=== PATIENT | female | born 1935 | race Caucasian/White ===

== ENCOUNTER 2017-03-10 19:20 | Emergency (ER) | payer OTHER, MEDICARE ==
[~2017-03-10] VITALS: Ht 165.1 cm; Wt 62.6 kg
--- NOTE | 2017-03-10 19:49 | ED MVC/FALL/TRAUMA COMPLAINT ---
History of Present Illness General Chief Complaint: Fall Stated Complaint: BIBA, +HEADSTRIKE, +THINNERS Source: patient, family, old records, EMS Exam Limitations: no limitations Vital Signs & Intake/Output Vital Signs & Intake/Output Vital Signs Date Time Temp Pulse Resp B/P B/P Pulse O2 O2 Flow FiO2 Mean Ox Delivery Rate 03/10 2118 97.6 64 16 132/72 95 Room Air 03/10 1935 97.1 68 18 147/76 96 Room Air Allergies Coded Allergies: ciprofloxacin (From CIPRO) (Severe, TONGUE AWELLS 03/10/17) tetracycline (Severe, TONGUE SWELLING 03/10/17) Penicillins (TONGUE SWELLS 03/10/17) losartan (HYPERKALEMIA 03/10/17) metformin (ELEVATED CREATININE 03/10/17) valsartan (From DIOVAN) (UNSURE 03/10/17) Reconcile Medications Amlodipine Besylate 5 MG TABLET 1 TAB PO DAILY BP (Reported) Aspirin (Ecotrin*) 81 MG TABLET.DR 1 TAB PO DAILY HEART/BLOOD (Reported) Atorvastatin Calcium (Lipitor) 40 MG TABLET 1 TAB PO DAILY CHOLESTEROL ( Reported) Biotin (Unknown Strength) TABLET (Unknown Dose) PO DAILY SUPPLEMENT (Reported ) Clopidogrel Bisulfate (Plavix) 75 MG TABLET 1 TAB PO DAILY BLOOD THINNER ( Reported) Docusate Sodium (Colace) 100 MG CAPSULE 1 CAP PO DAILY STOOL SOFTENER ( Reported) Estrogens, Conjugated (Premarin) (Unknown Strength) CREAM.APPL (Unknown Dose) VAG AD PRN HRT (Reported) Furosemide (Lasix) 20 MG TABLET 1 TAB PO DAILY DIURETIC/BP (Reported) Hydrocodone/Acetaminophen (Hydrocodon-Acetaminoph 7.5-325) 7.5 MG-325 MG TABLET 1-2 TAB PO Q6-8H PRN PAIN (Reported) Losartan Potassium (Cozaar) 25 MG TABLET 1 TAB PO BID HEART/BP (Reported) Magnesium Oxide (Magnesium) 250 MG TABLET 1 TAB PO DAILY SUPPLEMENT (Reported ) Meclizine HCl 25 MG TABLET 1 TAB PO PRN UNKNOWN (Reported) Metformin HCl (Glucophage XR) 500 MG TAB.ER.24H 1 TAB PO QPM DM (Reported) with food Metoprolol Tartrate 25 MG TABLET 1 TAB PO BID HEART/BP (Reported) Multivitamin (Multi-Day Vitamins) 1 EACH TABLET 1 TAB PO DAILY SUPPLEMENT ( Reported) Nitrofurantoin Macrocrystal (Macrodantin) 100 MG CAPSULE 1 CAP PO QHS ANTIBIOTIC (Reported) Oxycodone HCl/Acetaminophen (Percocet 5-325 MG Tablet) 5 MG-325 MG TABLET 1-2 TAB PO 4 TIMES/DAY PRN severe pain Triage Note: 82 YEAR OLD FEMALE TO ER VIA AMBULANCE FROM HER SONS HOME AFTER SHE TRIPPED AND FELL OVER HER SONS DOG AND LANDED ON HER L SIDE.ALERT/ORIENTED PT TAKES PLAVIX DAILY DUE TO HISTORY OF CARDIAC STENTS X2. NO BLEEDING NOTED AT THIS TIME AND PT COMPLAINS OF L SIDE HEAD BEING SORE, DENIES LOC . PT ARRIVED WITH C-COLLAR IN PLACE BUT DENIES NECK PAIN. PT NOTED TO BE ANXIOUS AT THIS TIME. PT ALSO COMPLAINS OF L RIB PAIN , AND L SHOULDER PAIN. PT ABLE TO LIFT ARM , BUT WITH COMPLAINTS OF A LOT OF PAIN. DR WHITE AT BEDSIDE. C-COLLAR REMOVED BY . Triage Nurses Notes Reviewed? yes Onset: Just prior to arrival Duration: minute(s):, constant, continues in ED Timing: recent history Severity: moderate Injuries/Fall Location: head, upper extremity, chest Method of Injury: direct blow, fall Loss of Consciousness: no loss of consciousness No Modifying Factors: none Associated Symptoms: headache LMP (ages 10-50): post menopausal : No Patient currently breastfeeds: No HPI: Prior to admission patient tripped over her daughter's dog falling onto her left side striking her head complaining of left shoulder and chest wall pain sharp worse with movement and turning bending constant nonradiating. she denies fever chills nausea vomiting diarrhea abdominal pain shortness of breath dysuria rash bleeding loss of consciousness.. Past History Travel History Traveled to [place] past 21 day No Medical History Any Pertinent Medical History? see below for history Neurological: vertigo EENT: allergies Cardiovascular: hypertension Respiratory: NONE Gastrointestinal: NONE Hepatic: NONE Renal: NONE Musculoskeletal: chronic back pain Psychiatric: NONE Endocrine: diabetes Blood Disorders: DVT Cancer(s): NONE PRIVACY OFFICER/Reproductive: NONE Surgical History Surgical History: non-contributory Psychosocial History What is your primary language Vietnamese Tobacco Use: Never used ETOH Use: denies use Illicit Drug Use: denies illicit drug use Family History Hx Contributory? No Review of Systems Review of Systems Constitutional: Reports: no symptoms. Eyes: Reports: no symptoms. Ears, Nose, Throat, Mouth: Reports: no symptoms. Respiratory: Reports: no symptoms. Cardiovascular: Reports: see HPI, chest pain. Gastrointestinal/Abdominal: Reports: no symptoms. Genitourinary: Reports: no symptoms. Musculoskeletal: Reports: see HPI, joint pain. Skin: Reports: no symptoms. Neurological/Psychological: Reports: no symptoms. All Other Systems: Reviewed and Negative Physical Exam Physical Exam General Appearance: well developed/nourished, alert, awake, anxious, mild distress Head: atraumatic, normal appearance Eyes: Bilateral: normal appearance, PERRL, EOMI, normal inspection. Ears, Nose, Throat, Mouth: hearing grossly normal, moist mucous membrane Neck: normal inspection, supple, full range of motion, normal alignment, no midline tenderness Respiratory: normal breath sounds, no respiratory distress, quiet respiration, lungs clear, left anterior chest wall tenderness without crepitus step off Cardiovascular: regular rate/rhythm, normal peripheral pulses, norml femoral pulses equa Peripheral Pulses: 4+ carotid (R), 4+ carotid (L) Gastrointestinal: normal bowel sounds, soft, non-tender, no organomegaly Back: normal inspection, normal range of motion Extremities: pelvis stable, bony-point tenderness, injury present, limited range of motion, straight leg raised, tenderness Neurologic/Psych: no motor/sensory deficits, awake, alert, oriented x 3, normal mood/affect, tools administrator II-XII nml as tested Skin: intact, normal color, warm/dry Core Measures ACS in differential dx? No Severe Sepsis Present: No Septic Shock Present: No Progress Differential Diagnosis: ext injury, ICH, pnemothorax Plan of Care: Orders Procedure Date/time Status Durable Medical Equipment 03/10 2106 Active PROTHROMBIN TIME 03/10 1946 Complete COMPREHENSIVE METABOLIC PANEL 03/10 1946 Complete CBC WITHOUT DIFFERENTIAL 03/10 1946 Complete Laboratory Tests 03/10/171948: Anion Gap 12, Estimated GFR > 60, BUN/Creatinine Ratio 14.4, Glucose 107 H, Calcium 9.3, Total Bilirubin 0.6, AST 33, ALT 28, Alkaline Phosphatase 108, Total Protein 7.8, Albumin 4.3, Globulin 3.5, Albumin/Globulin Ratio 1.2, PT 11.8, INR 1.13, CBC w Diff NO MAN DIFF REQ, RBC 4.05 L, MCV 94.5, MCH 31.2 H, RDW 14.4, MPV 7.3 L, Gran % 42.6, Lymphocytes % 30.5, Monocytes % 10.5 H, Eosinophils % 15.8 H, Basophils % 0.6, Absolute Granulocytes 2.9, Absolute Lymphocytes 2.1, Absolute Monocytes 0.7 H, Absolute Eosinophils 1.1, Absolute Basophils 0, PUBS MCHC 33.0 Diagnostic Imaging: Viewed by Me: Radiology Read, CT Scan. Discussed w/RAD: Radiology Read, CT Scan. Radiology Impression: 1. No finding to correlate with left anterior chest pain. 2. Extensive emphysematous changes within the lungs. Superimposed peripheral fibrotic changes most notable in the bases. 3 mm pulmonary nodules in the upper lobes. Per Fleischner 2017 guidelines, for pulmonary nodules of this size, CT follow-up in 12 months is suggested. 3. Mediastinal and hilar adenopathy measuring up to 1.5 cm in short axis, nonspecific., Nondisplaced fracture through the greater tuberosity of the humeral head. Surrounding soft tissue inflammatory changes. No dislocation., No acute intracranial pathology. Mild chronic white matter microangiopathy. Departure Departure Time of Disposition: 2122 Disposition: HOME OR SELF CARE Condition: Stable Clinical Impression Primary Impression: Minor head injury without loss of consciousness Qualifiers: Encounter type: initial encounter Qualified Code: S09.90XA - Unspecified injury of head, initial encounter Secondary Impressions: Contusion of left chest wall Qualifiers: Encounter type: initial encounter Qualified Code: S20.212A - Contusion of left front wall of thorax, initial encounter Fracture, humerus closed Qualifiers: Encounter type: initial encounter Humerus Location: proximal Fracture morphology: unspecified fracture morphology Laterality: left Qualified Code: S42.202A - Unspecified fracture of upper end of left humerus, initial encounter for closed fracture Referrals: RUFINO BONDS,SHEILA Jeffers Call for orthopedic follow up MASOOD ARGUELLES MD Call for orthopedic follow up Departure Forms: Customer Survey General Discharge Information Prescriptions: Current Visit Scripts Oxycodone HCl/Acetaminophen (Percocet 5-325 MG Tablet) 1-2 TAB PO 4 TIMES/DAY PRN severe pain #20 TAB
[2017-03-10] MEDS ORDERED: LASIX20 M1 PO (19:57)
[2017-03-10] MEDS ORDERED: AMLODIPINE BESYL5 M1 PO (19:58)
[2017-03-10] MEDS ORDERED: COZAAR25 M1 PO (19:58)
[2017-03-10] MEDS ORDERED: LIPITOR40 M1 PO (19:59)
[2017-03-10] MEDS ORDERED: PLAVIX75 M1 PO (19:59)
[2017-03-10] MEDS ORDERED: ASPIRIN EC81 M1 PO (19:59)
[2017-03-10] MEDS ORDERED: HYDROCODON-ACE1 EAC3 PO (20:04)
[2017-03-10 20:05] LABS: ABSOLUTE BASOPHIL COUNT 0 /CUMM (0.0-0.2); ABSOLUTE EOSINOPHIL COUNT 1.1 /CUMM (0.0-0.7); ABSOLUTE GRANULOCYTE CT 2.9 /CUMM (1.4-6.5); ABSOLUTE LYMPH COUNT 2.1 /CUMM (1.2-3.4); ABSOLUTE MONOCYTE COUNT 0.7 /CUMM (0.10-0.60); BASOPHIL % 0.6 % (0.0-2.0); EOSINOPHIL % 15.8 % (0-5); GRANULOCYTE % 42.6 % (42.2-75.2); HEMATOCRIT 38.3 % (37-47); MEAN CORPUSCULAR HGB 31.2 PG (27.0-31.0); MEAN CORPUSCULAR VOLUME 94.5 FL (81.0-99.0); MEAN PLATELET VOLUME 7.3 FL (7.4-10.4); PLATELET COUNT 244 /CUMM (130-400); RBC DISTRIBUTION WIDTH 14.4 % (11.5-14.5); RED BLOOD CELL CT 4.05 /CUMM (4.20-5.40); WHITE BLOOD CELL COUNT 6.9 /CUMM (4.8-10.8)
[2017-03-10] MEDS ORDERED: METOPROLOL TART25 M1 PO (20:05)
[2017-03-10] MEDS ORDERED: MACRODANTIN100 M1 PO (20:07)
[2017-03-10] MEDS ORDERED: PREMARIN30 GM VAG (20:08)
[2017-03-10] MEDS ORDERED: GLUCOPHAGE XR500 M1 PO (20:08)
[2017-03-10 20:14] LABS: PT 11.8 SEC (9.4-12.5)
[2017-03-10] MEDS ORDERED: COLACE100 M1 PO (20:17)
[2017-03-10] MEDS ORDERED: MAGNESIUM250 M2 PO (20:17)
[2017-03-10] MEDS ORDERED: MULTI-DAY VITA1 EACH PO (20:17)
[2017-03-10] MEDS ORDERED: MECLIZINE HCL25 MG PO (20:18)
[2017-03-10] MEDS ORDERED: BIOTIN1 M1 PO (20:19)
--- NOTE | 2017-03-10 20:33 | CT SCAN REPORT ---
EXAMINATION: CT HEAD WITHOUT CONTRAST CLINICAL INFORMATION: Head strike. Rule out intracranial hemorrhage. COMPARISON: None TECHNIQUE: Contiguous axial imaging was performed from the skull base to vertex without intravenous administration of contrast. DLP: 619.5 mGy-cm FINDINGS: There is no evidence of acute intracranial hemorrhage or territorial infarction. No abnormal mass effect or midline shift is seen. Cornejo to white matter differentiation is well preserved. No extra-axial fluid collections are identified. The ventricles are normal in size. Nonspecific patchy areas of low density change in the cerebral white matter may be due to chronic microangiopathy. The osseous structures and soft tissues are normal. The mastoid air cells are well aerated. There is mild mucosal thickening in the ethmoid sinuses. IMPRESSION: No acute intracranial pathology. Mild chronic white matter microangiopathy.
--- NOTE | 2017-03-10 20:34 | RADIOLOGY REPORT ---
EXAMINATION: XR SHOULDER, LEFT CLINICAL INFORMATION: Pain after fall. COMPARISON: None TECHNIQUE: AP external rotation, Grashey, scapular Y, and axillary views of the left shoulder. FINDINGS: There is a fracture through the greater tuberosity of the humeral head without displacement of fracture fragments. No dislocation is seen. Surrounding soft tissue swelling is noted. The AC joint is maintained. The imaged portions of the left lung are clear. IMPRESSION: Nondisplaced fracture through the greater tuberosity of the humeral head. Surrounding soft tissue inflammatory changes. No dislocation.
--- NOTE | 2017-03-10 20:50 | CT SCAN REPORT ---
EXAMINATION: CT CHEST WITHOUT CONTRAST CLINICAL INFORMATION: Left anterior lower chest tenderness after fall. COMPARISON: Shoulder radiographs from earlier the same day. TECHNIQUE: Multidetector volumetric CT imaging of the chest was done. Axial MIP volume rendering provided. Sagittal and coronal reformatted images were obtained. DLP: 296 mGy-cm FINDINGS: CUSTOMER SERVICES COORDINATOR: No acute finding LUNGS: There are extensive emphysematous changes within the lungs. There is a 3 mm right upper lobe pulmonary nodule (series 4 image 126). There is a 3 mm left upper lobe pulmonary nodule (series 4 image 191). There are some fibrotic changes at the periphery of the long bilaterally more notable in the lower lobes, but also present elsewhere. MEDIASTINUM: There are several mediastinal lymph nodes. The prevascular lymph nodes measure up to 1.3 cm in short axis. The peritracheal lymph nodes measure up to 1.4 cm in long axis. The subcarinal lymph nodes measure up to 1.5 cm in long axis. Bilateral hilar lymphadenopathy is visualized but is difficult to resolve discretely given lack of contrast. The heart appears normal in size. No pericardial effusion. Dense coronary calcifications. The thoracic aorta is normal in caliber with scattered atherosclerotic calcification. PLEURA: There is no pleural effusion. No pleural mass or thickening. AXILLA: No lymphadenopathy. UPPER ABDOMEN: Unremarkable. OSSEOUS STRUCTURES: No acute osseous abnormalities. Mild degenerative changes of the spine. No focal finding in the left anterior chest. IMPRESSION: 1. No finding to correlate with left anterior chest pain. 2. Extensive emphysematous changes within the lungs. Superimposed peripheral fibrotic changes most notable in the bases. 3 mm pulmonary nodules in the upper lobes. Per Fleischner 2017 guidelines, for pulmonary nodules of this size, CT follow-up in 12 months is suggested. 3. Mediastinal and hilar adenopathy measuring up to 1.5 cm in short axis, nonspecific.
[2017-03-10] MEDS ORDERED: PERCOCET 5-3251 EACH PO (21:25)
== END 2017-03-10 21:31 ==
LOC: ERH 19:20
PROVIDERS: Emergency Medicine
DX: S42.252A Displaced fracture of greater tuberosity of left humerus, initial encounter for closed fracture (principal); S09.90XA Unspecified injury of head, initial encounter; S20.212A Contusion of left front wall of thorax, initial encounter; W01.0XXA Fall on same level from slipping, tripping and stumbling without subsequent striking against object, initial encounter; Y92.009 Unspecified place in unspecified non-institutional (private) residence as the place of occurrence of the external cause; Y93.9 Activity, unspecified
CPT/HCPCS: 73030-LT; 96374; 96375; J0131